=== PATIENT | male | born 1980 | race Two or more races ===

== ENCOUNTER 2018-11-01 17:07 | Emergency (ER) | payer OTHER ==
[2018-11-01] MEDS ORDERED: LORazepam 2MG/ML-1ML VIAL ONE (19:20)
[2018-11-01] MEDS ORDERED: diphenhdrAMINE HCL 50 MG/1 ML VL IM ONE (19:30)
[2018-11-01] MEDS ORDERED: LORazepam 2MG/ML-1ML VIAL IM ONE (19:30)
[2018-11-01] MEDS ORDERED: HALOPERIDOL LACTATE 5 MG/ML INJ VIAL IM ONE (19:30)
[2018-11-01] MEDS ORDERED: ACCU-CHEK COMFORT CURVE STRIP VI ONE (19:45)
[2018-11-01 20:44] LABS: Basophils # (auto) 0 uL; Basophils % (auto) 0.3 % (0.0-2.0); Eosinophils # (auto) 0 uL; Eosinophils % (auto) 0.2 % (0.0-7.0); Hematocrit 46.3 % (41.0-53.0); Hemoglobin 14.5 g/dL (13.5-17.5); Mean Corpuscular Hemoglobin 29.1 pg (28.0-32.0); Mean Corpuscular Hgb Conc. 31.3 g/dL (32.0-36.0); Mean Corpuscular Volume 92.9 fL (80.0-100.0); Monocytes # (auto) 1.3 uL; Monocytes % (auto) 10.4 % (0.0-12.0); Neutrophils # (auto) 7.7 uL; Neutrophils % (auto) 64.1 % (37.0-80.0); Nucleated Red Blood Cells % 0.1 %; Platelet Count (auto) 289 10^3/uL (140-450); Red Blood Cells 4.98 10^6/uL (4.5-5.90)
[2018-11-01 21:09] LABS: Salicylate 2.9 mg/dL (2.8-20.0)
[2018-11-01 21:15] LABS: Acetaminophen < 2.0 ug/mL (10-30); Albumin 4.1 g/dL (3.4-5.0); Anion Gap 25 (5-15); Blood Alcohol < 3.0 mg/dL (0-5); Blood Urea Nitrogen 13 mg/dL (7-18); Calcium 10.2 mg/dL (8.5-10.1); Chloride 106 mmol/L (98-107); Glucose 222 mg/dL (74-106); Sodium 140 mmol/L (136-145)
[2018-11-01 21:20] LABS: Alanine Aminotransferase 38 U/L (16-61); Alkaline Phosphatase 69 U/L (45-117); Aspartate Aminotransferase 45 U/L (15-37); Bilirubin, Total 0.5 mg/dL (0.2-1.0); GFR African American 67 mL/min; GFR Non-African American 55 mL/min; Total Protein 7.7 g/dL (6.4-8.2)
[2018-11-01 21:34] LABS: Carbon Dioxide 9 mmol/L (21-32)
[2018-11-01 22:29] LABS: BUN/Creatinine Ratio 14.6; Calcium 9.6 mg/dL (8.5-10.1); Potassium 3.9 mmol/L (3.5-5.1)
[2018-11-01 22:50] LABS: BUN/Creatinine Ratio 8.6
[2018-11-01 23:56] LABS: Urine Bacteria FEW /hpf (None Seen); Urine Blood 1+ /uL (Negative); Urine Hyaline Cast FEW /lpf (0 - 2); Urine Specific Gravity 1.015 (1.001-1.035); Urine WBC 1 /hpf (0 - 3)
[2018-11-02 00:16] LABS: Alcohol, Urine < 3.0 mg/dL (0-5); Amphetamine Screen, Urine NEGATIVE (NEGATIVE); Barbiturate Scree,Urine NEGATIVE (NEGATIVE); Cannabinoid Screen, Urine POSITIVE (NEGATIVE); Cocaine Screen, Urine NEGATIVE (NEGATIVE); Opiate Scree,Urine NEGATIVE (NEGATIVE); Phencyclidine Screen, Urine NEGATIVE (NEGATIVE)
[2018-11-02 00:22] LABS: Benzodiazephine Screen, Urine NEGATIVE (NEGATIVE)
[2018-11-02 01:12] VITALS: BP 99/56
== END 2018-11-02 02:28 | disposition left against medical advice (07) ==
LOC: EDBD → ER 17:24
DX: S02.2XXB Fracture of nasal bones, initial encounter for open fracture (principal); G40.309 Generalized idiopathic epilepsy and epileptic syndromes, not intractable, without status epilepticus; Z53.29 Procedure and treatment not carried out because of patient's decision for other reasons; W19.XXXA Unspecified fall, initial encounter; Y93.89 Activity, other specified; Y99.8 Other external cause status; Y92.89 Other specified places as the place of occurrence of the external cause
CPT/HCPCS: 36415; 70450; 70486; 72125; 80048; 80053; 80307; 80320; 80329; 81001; 82962; 85025; 94761; 96372; 99291; J1200; J1630; J2060

== ENCOUNTER 2018-11-02 13:02 | Emergency (ER) | payer OTHER ==
[~2018-11-02] VITALS: Ht 177.8 cm; Wt 88.5 kg
[2018-11-02] MEDS ORDERED: SODIUM CHLORIDE 0.9% 1,000 ML IV ONE (16:48)
[2018-11-02] MEDS ORDERED: LEVETIRACETAM INJ 1,000 MG in D5W 5% 100 ML IV ONE (17:00)
[2018-11-02] MEDS ORDERED: LEVETIRACETAM 500 MG/5ML INJ IV ONE (17:02)
[2018-11-02 18:07] VITALS: BP 132/90
== END 2018-11-02 18:18 | disposition home or self-care (01) ==
LOC: ER 13:02
DX: S00.33XA Contusion of nose, initial encounter (principal); S00.531A Contusion of lip, initial encounter; G40.909 Epilepsy, unspecified, not intractable, without status epilepticus; Z90.89 Acquired absence of other organs; W19.XXXA Unspecified fall, initial encounter; Y93.89 Activity, other specified; Y92.89 Other specified places as the place of occurrence of the external cause; Y99.8 Other external cause status
CPT/HCPCS: 96365; 99283; J1953; J7030; J7060

== ENCOUNTER → 2018-11-02 | Emergency (ER) | payer OTHER | END | disposition left against medical advice (07) | LOC: CANPREER → ER 04:17 | DX: R56.9 Unspecified convulsions (principal); Z53.21 Procedure and treatment not carried out due to patient leaving prior to being seen by health care provider ==